=== PATIENT | female | born 1960 | race Caucasian/White ===

== ENCOUNTER 2022-05-22 06:14 | Emergency (ER) | payer MEDICAID, OTHER ==
[~2022-05-22] VITALS: Ht 167.6 cm; Wt 75.0 kg
[~2022-05-22 06:14] MED LIST: NO HOME MEDS; ONDA4TAB12 PO; ONDA4TAB6 PO; PANT-47 PO
[2022-05-22] MEDS ORDERED: ketorolac trometh. 30mg/ml inj. IV ONE (07:40)
[2022-05-22] MEDS ORDERED: normal saline 1000ML IV soln IVB ONE ×2 (07:40)
[2022-05-22] MEDS ORDERED: metoclopramide 5 mg/ml inj IV ONE (07:40)
[2022-05-22] MEDS ORDERED: diphenhydrAMINE 50 mg/ml inj IV ONE (07:40)
[2022-05-22 08:01] LABS: BASOPHILS % (AUTO) 0.2 % (0-1); EOSINOPHILS % (AUTO) 0.1 % (0-6); HEMATOCRIT 48.1 % (35.0-45.0); HEMOGLOBIN 15.7 g/dl (12.0-16.0); LYMPHOCYTES # (AUTO) 0.5 X10'3 (1.1-4.8); LYMPHOCYTES % (AUTO) 9.4 % (21-51); MEAN CORPUSCULAR HEMOGLOBIN 28.8 PG (27.0-31.0); MEAN CORPUSCULAR HGB CONC 32.6 g/dL (33.0-36.5); MEAN CORPUSCULAR VOLUME 88.5 FL (78-98); MEAN PLATELET VOLUME 8.5 FL (7.4-10.4); MONOCYTES # (AUTO) 0.5 X10'3 (0-0.9); MONOCYTES % (AUTO) 9.1 % (2-12); NEUTROPHILS % (AUTO) 81.2 % (42-75); PLATELET COUNT 135 X10'3 (140-440); RED BLOOD COUNT 5.43 X10'6 (4.20-5.60); RED CELL DISTRIBUTION WIDTH 13.8 % (11.5-14.5)
[2022-05-22 08:18] LABS: ALBUMIN 4.1 G/DL (3.4-5.0); ANION GAP 12 (8-16); BILIRUBIN,TOTAL 0.5 MG/DL (0.1-1.0); BLOOD UREA NITROGEN 11 MG/DL (7-18); BUN/CREATININE RATIO 12.1 (6.6-38.0); CALCIUM 9.6 MG/DL (8.5-10.1); CHLORIDE 104 MMOL/L (99-107); CREATININE 0.91 MG/DL (0.40-0.90); GLUCOSE 148 MG/DL (70-104); POTASSIUM 3.4 MMOL/L (3.5-5.1); SODIUM 141 MMOL/L (135-145); TOTAL CARBON DIOXIDE 25.5 MMOL/L (24-32); TOTAL PROTEIN 8.1 G/DL (6.4-8.2); eGFR 63 ML/MIN
[2022-05-22 08:19] LABS: ALANINE AMINOTRANSFERASE 45 U/L (12-78); ALKALINE PHOSPHATASE 83 IU/L (46-116); ASPARTATE AMINO TRANSFERASE 33 U/L (10-37); LIPASE 100 U/L (73-393)
[2022-05-22 10:01] VITALS: BP 164/77
== END 2022-05-22 10:36 | disposition home or self-care (01) ==
LOC: ER 06:15
DX: R11.2 Nausea with vomiting, unspecified (principal); Z20.822 Contact with and (suspected) exposure to COVID-19; R19.7 Diarrhea, unspecified; R51.9 Headache, unspecified; R53.83 Other fatigue; R61 Generalized hyperhidrosis; R68.83 Chills (without fever); Z56.0 Unemployment, unspecified; Z88.8 Allergy status to other drugs, medicaments and biological substances; Z79.899 Other long term (current) drug therapy
CPT/HCPCS: 36415; 80053; 83690; 84145; 85025; 87502; 87503; 87811; 96361; 96374; 96375; 99284; J1200; J1885; J2765; J7030